=== PATIENT | male | born 1990 | race Caucasian/White ===

== ENCOUNTER 2020-12-28 12:46 | Inpatient (IN) | payer OTHER ==
[2020-12-28 13:37] VITALS: BMI 22.0
[2020-12-28] MEDS ORDERED: BISMUTH SUBSALICYLATE 262 MG/15 ML BTL PO PRN (15:17)
[2020-12-28] MEDS ORDERED: MAGNESIUM CITRATE 300 ML BOTTLE PO PRN (15:17)
[2020-12-28] MEDS ORDERED: ACETAMINOPHEN 325 MG TABLET (FP) PO PRN ×2 (15:17)
[2020-12-28] MEDS ORDERED: METHOCARBAMOL 500 MG TABLET PO PRN (15:17)
[2020-12-28] MEDS ORDERED: IBUPROFEN 400 MG TABLET (FP) PO PRN (15:17)
[2020-12-28] MEDS ORDERED: LORazepam 1 MG TABLET PO PRN (15:17)
[2020-12-28] MEDS ORDERED: MAG HYDROX/AL HYDROX/SIMETH 30 ML UNIT-DOSE CUP PO PRN (15:17)
[2020-12-28] MEDS ORDERED: MENTHOL/PHENOL 1 EACH UD MM PRN (15:17)
[2020-12-28] MEDS ORDERED: ONDANSETRON *ODT* 4 MG TABLET SL PRN (15:17)
[2020-12-28] MEDS ORDERED: MAGNESIUM HYDROX 2400MG/30ML ORAL SUSPENSION 30 ML CUP PO PRN (15:17)
[2020-12-28] MEDS: hydrOXYzine PAMOATE 25 MG CAPSULE (FP) PO SCH ×2 (17:16→22:44)
[2020-12-28] MEDS: LORazepam 2 MG TABLET PO SCH ×2 (17:16→22:44)
[2020-12-28] MEDS: NICOTINE POLACRILEX 2 MG GUM BUC PRN (18:13)
[2020-12-28] MEDS ORDERED: THIAMINE HCL 100 MG TABLET (FP) PO SCH (22:00)
[2020-12-28] MEDS ORDERED: MELATONIN 5 MG TABLETS PO SCH (22:00)
[2020-12-29] MEDS: LORazepam 2 MG TABLET PO SCH ×2 (06:47→10:48)
[2020-12-29] MEDS: hydrOXYzine PAMOATE 25 MG CAPSULE (FP) PO SCH ×3 (06:47→13:12)
[2020-12-29] MEDS ORDERED: PRENATAL VITAMINS W/ FOLIC ACID TABLET (FP) PO SCH (10:00)
[2020-12-29 10:05] LABS: HEMATOCRIT 41.9 % (35.4-49); HEMOGLOBIN 14.1 GM/dL (11.7-16.9); MCH 29.9 pg (25.7-33.7); MCHC 33.6 g/dl (32.0-35.9); MEAN PLT VOLUME 6.9 fl (7.5-11.1); PLATELET COUNT 329 10^3/uL (134-434); RBC 4.71 M/mm3 (4.00-5.60); RDW 13.7 % (11.9-15.9); WHITE BLOOD COUNT 5.3 K/mm3 (4.0-10.0)
[2020-12-29 10:15] LABS: ALBUMIN 3.4 g/dl (3.4-5.0); BLOOD UREA NITROGEN 9.7 mg/dL (7-18); CALCIUM 8.6 mg/dL (8.5-10.1)
[2020-12-29 10:19] LABS: CREATININE 0.7 mg/dL (0.55-1.3)
[2020-12-29 10:20] LABS: BILIRUBIN,TOTAL 0.5 mg/dL (0.2-1); TOT PROT 6.7 g/dl (6.4-8.2)
[2020-12-29] MEDS: NICOTINE POLACRILEX 2 MG GUM BUC PRN (10:51)
[2020-12-29 11:10] LABS: HIV INTERPRETATION NEGATIVE (NEGATIVE)
[2020-12-29 14:13] VITALS: BP 111/87; PULSE 104; TEMP 97.1
[2020-12-30] MEDS ORDERED: LORazepam 1 MG TABLET PO SCH (05:00)
[2020-12-31] MEDS ORDERED: LORazepam 0.5 MG TABLET PO PRN
[2020-12-31] MEDS ORDERED: LORazepam 0.5 MG TABLET PO SCH (05:00)
[2021-01-01] MEDS ORDERED: LORazepam 0.5 MG TABLET PO ONE (05:00)
== END 2020-12-29 15:35 | disposition left against medical advice (07) | DRG 770 ==
LOC: YASAS 12:46 → Y3N 15:04
PROVIDERS: ADMIT Allergy & Immunology; ATTEND Allergy & Immunology
PROC: HZ2ZZZZ Detoxification Services for Substance Abuse Treatment (ICD-10-PCS; principal; 2020-12-28)
DX: F11.23 Opioid dependence with withdrawal (principal); F19.10 Other psychoactive substance abuse, uncomplicated; F10.10 Alcohol abuse, uncomplicated; F17.210 Nicotine dependence, cigarettes, uncomplicated; Z86.69 Personal history of other diseases of the nervous system and sense organs; Z59.0 Homelessness
CPT/HCPCS: 36415; 80053; 85027; 86780; 87389; 93005; 93010; C9803; U0003; U0005

== ENCOUNTER 2021-01-12 12:25 | Inpatient (IN) | payer OTHER ==
[2021-01-12] MEDS ORDERED: ONDANSETRON *ODT* 4 MG TABLET SL PRN (17:37)
[2021-01-12] MEDS ORDERED: MAG HYDROX/AL HYDROX/SIMETH 30 ML UNIT-DOSE CUP PO PRN (17:37)
[2021-01-12] MEDS ORDERED: MAGNESIUM HYDROX 2400MG/30ML ORAL SUSPENSION 30 ML CUP PO PRN (17:37)
[2021-01-12] MEDS ORDERED: BISMUTH SUBSALICYLATE 524 MG/30 ML PO PRN (17:37)
[2021-01-12] MEDS ORDERED: IBUPROFEN 400 MG TABLET (FP) PO PRN (17:37)
[2021-01-12] MEDS ORDERED: MENTHOL/PHENOL 1 EACH UD MM PRN (17:37)
[2021-01-12] MEDS ORDERED: MAGNESIUM CITRATE 300 ML BOTTLE PO PRN (17:37)
[2021-01-12] MEDS ORDERED: NICOTINE POLACRILEX 2 MG GUM BUC PRN (17:37)
[2021-01-12] MEDS ORDERED: ACETAMINOPHEN 325 MG TABLET (FP) PO PRN ×2 (17:37)
[2021-01-12] MEDS ORDERED: METHOCARBAMOL 500 MG TABLET PO PRN (17:37)
[2021-01-12 17:51] VITALS: BMI 22.0
[2021-01-12] MEDS: hydrOXYzine PAMOATE 25 MG CAPSULE (FP) PO PRN (19:12)
[2021-01-12] MEDS ORDERED: LORazepam 1 MG TABLET PO ONE (19:23)
[2021-01-12] MEDS: THIAMINE HCL 100 MG TABLET (FP) PO SCH (22:22)
[2021-01-12] MEDS: MELATONIN 5 MG TABLETS PO SCH (22:22)
[2021-01-12] MEDS: QUEtiapine FUMARATE 100 MG TABLET (FP) PO SCH (22:22)
[2021-01-12] MEDS: GABAPENTIN 300 MG CAPSULE PO SCH (22:23)
[2021-01-13] MEDS: GABAPENTIN 300 MG CAPSULE PO SCH ×3 (06:10→22:25)
[2021-01-13] MEDS: hydrOXYzine PAMOATE 25 MG CAPSULE (FP) PO PRN (06:12)
[2021-01-13] MEDS ORDERED: ARIPiprazole 15 MG TABLET PO SCH (10:00)
[2021-01-13] MEDS: NICOTINE 21 MG/24 HOURS TOPICAL PATCH TD SCH (10:22)
[2021-01-13] MEDS: PRENATAL VITAMINS W/ FOLIC ACID TABLET (FP) PO SCH (10:22)
[2021-01-13] MEDS ORDERED: diazePAM 5 MG TABLET PO PRN ×2 (11:31→11:43)
[2021-01-13] MEDS: diazePAM 5 MG TABLET PO SCH ×3 (11:44→23:35)
[2021-01-13 11:49] LABS: HEMATOCRIT 46.5 % (35.4-49); HEMOGLOBIN 15.5 GM/dL (11.7-16.9); MCH 30.2 pg (25.7-33.7); MCHC 33.3 g/dl (32.0-35.9); MEAN CELL VOLUME 90.6 fl (80-96); MEAN PLT VOLUME 6.7 fl (7.5-11.1); PLATELET COUNT 345 10^3/uL (134-434); RBC 5.13 M/mm3 (4.00-5.60); RDW 14.1 % (11.9-15.9); WHITE BLOOD COUNT 8.1 K/mm3 (4.0-10.0)
[2021-01-13 12:03] LABS: ALBUMIN 3.5 g/dl (3.4-5.0); BLOOD UREA NITROGEN 15.9 mg/dL (7-18); CALCIUM 8.6 mg/dL (8.5-10.1)
[2021-01-13 12:07] LABS: CREATININE 0.9 mg/dL (0.55-1.3)
[2021-01-13 12:08] LABS: BILIRUBIN,TOTAL 0.5 mg/dL (0.2-1); TOT PROT 7.2 g/dl (6.4-8.2)
[2021-01-13] MEDS: THIAMINE HCL 100 MG TABLET (FP) PO SCH (22:25)
[2021-01-13] MEDS: QUEtiapine FUMARATE 100 MG TABLET (FP) PO SCH (22:25)
[2021-01-13] MEDS: MELATONIN 5 MG TABLETS PO SCH (22:27)
[2021-01-14] MEDS: diazePAM 5 MG TABLET PO SCH ×3 (06:09→22:16)
[2021-01-14] MEDS: GABAPENTIN 300 MG CAPSULE PO SCH ×3 (06:10→22:16)
[2021-01-14] MEDS: hydrOXYzine PAMOATE 25 MG CAPSULE (FP) PO PRN (10:30)
[2021-01-14] MEDS: PRENATAL VITAMINS W/ FOLIC ACID TABLET (FP) PO SCH (10:30)
[2021-01-14] MEDS: NICOTINE 21 MG/24 HOURS TOPICAL PATCH TD SCH (10:31)
[2021-01-14] MEDS: QUEtiapine FUMARATE 100 MG TABLET (FP) PO SCH (22:16)
[2021-01-14] MEDS: THIAMINE HCL 100 MG TABLET (FP) PO SCH (22:16)
[2021-01-14] MEDS: MELATONIN 5 MG TABLETS PO SCH (22:49)
[2021-01-14 23:12] LABS: HIV INTERPRETATION NEGATIVE (NEGATIVE)
[2021-01-15] MEDS: diazePAM 5 MG TABLET PO SCH ×2 (05:51→17:36)
[2021-01-15] MEDS: GABAPENTIN 300 MG CAPSULE PO SCH ×3 (05:51→22:22)
[2021-01-15] MEDS: NICOTINE 21 MG/24 HOURS TOPICAL PATCH TD SCH (10:23)
[2021-01-15] MEDS: PRENATAL VITAMINS W/ FOLIC ACID TABLET (FP) PO SCH (10:23)
[2021-01-15] MEDS: QUEtiapine FUMARATE 100 MG TABLET (FP) PO SCH (22:22)
[2021-01-15] MEDS: THIAMINE HCL 100 MG TABLET (FP) PO SCH (22:22)
[2021-01-15] MEDS: MELATONIN 5 MG TABLETS PO SCH (22:22)
[2021-01-15 23:02] VITALS: TEMP 98.1
[2021-01-16] MEDS: GABAPENTIN 300 MG CAPSULE PO SCH (05:56)
[2021-01-16] MEDS ORDERED: diazePAM 5 MG TABLET PO ONE (06:00)
[2021-01-16 09:01] VITALS: BP 129/65; PULSE 110
[2021-01-16] MEDS: PRENATAL VITAMINS W/ FOLIC ACID TABLET (FP) PO SCH (09:37)
== END 2021-01-16 09:36 | disposition other institution (70) | DRG 776 ==
LOC: YASAS 12:25 → Y6N 17:40
PROVIDERS: ADMIT Allergy & Immunology; ATTEND Allergy & Immunology
PROC: HZ2ZZZZ Detoxification Services for Substance Abuse Treatment (ICD-10-PCS; principal; 2021-01-12)
DX: F13.230 Sedative, hypnotic or anxiolytic dependence with withdrawal, uncomplicated (principal); F15.20 Other stimulant dependence, uncomplicated; F17.210 Nicotine dependence, cigarettes, uncomplicated; F25.9 Schizoaffective disorder, unspecified; F19.282 Other psychoactive substance dependence with psychoactive substance-induced sleep disorder; F19.24 Other psychoactive substance dependence with psychoactive substance-induced mood disorder; F34.0 Cyclothymic disorder; F43.10 Post-traumatic stress disorder, unspecified; G40.89 Other seizures; Z86.19 Personal history of other infectious and parasitic diseases; Z91.410 Personal history of adult physical and sexual abuse; Z88.0 Allergy status to penicillin; Z59.0 Homelessness; Z56.0 Unemployment, unspecified
CPT/HCPCS: 36415; 80053; 85027; 86593; 86780; 87389; C9803; U0003; U0005

== ENCOUNTER 2022-09-04 11:10 | Inpatient (IN) | payer OTHER ==
[2022-09-04 11:46] VITALS: BMI 22.1
[2022-09-04] MEDS ORDERED: DICYCLOMINE HCL 10 MG CAPSULE PO PRN (12:50)
[2022-09-04] MEDS ORDERED: LOPERAMIDE HCL 2 MG CAPSULE PO PRN (12:50)
[2022-09-04] MEDS ORDERED: ACETAMINOPHEN 325 MG TABLET (FP) PO PRN ×2 (12:50)
[2022-09-04] MEDS ORDERED: NICOTINE POLACRILEX 2 MG GUM BUC PRN (12:50)
[2022-09-04] MEDS ORDERED: NALOXONE HCL (KLOXXADO) 8 MG SPRAY NS PRN (12:50)
[2022-09-04] MEDS ORDERED: IBUPROFEN 600 MG TABLET (FP) PO PRN (12:50)
[2022-09-04] MEDS ORDERED: POLYETHYLENE GLYCOL (HEALTHYLAX) 3350 17 GM PACKET PO PRN (12:50)
[2022-09-04] MEDS ORDERED: BISMUTH SUBSALICYLATE 524 MG/30 ML PO PRN (12:50)
[2022-09-04] MEDS ORDERED: MAG HYDROX/AL HYDROX/SIMETH 30 ML UNIT-DOSE CUP PO PRN (12:50)
[2022-09-04] MEDS ORDERED: ONDANSETRON *ODT* 4 MG TABLET SL PRN (12:50)
[2022-09-04] MEDS ORDERED: MAGNESIUM HYDROX 2400MG/30ML ORAL SUSPENSION 30 ML CUP PO PRN (12:50)
[2022-09-04] MEDS ORDERED: BENZOCAINE/MENTHOL (CHLORASEPTIC ) LOZENGE MM PRN (12:50)
[2022-09-04] MEDS ORDERED: chlordiazePOXIDE HCL 25 MG CAPSULE PO ONE (14:05)
[2022-09-04] MEDS ORDERED: chlordiazePOXIDE HCL 25 MG CAPSULE PO PRN (14:05)
[2022-09-04] MEDS ORDERED: chlordiazePOXIDE HCL 25 MG CAPSULE ONE (14:17)
[2022-09-04] MEDS: NICOTINE 14 MG/24 HOURS TOPICAL PATCH TD SCH (15:52)
[2022-09-04] MEDS: chlordiazePOXIDE HCL 25 MG CAPSULE PO SCH ×2 (17:20→22:09)
[2022-09-04] MEDS: METHOCARBAMOL 500 MG TABLET PO PRN (17:21)
[2022-09-04] MEDS: THIAMINE HCL 100 MG TABLET (FP) PO SCH (22:10)
[2022-09-04] MEDS: MELATONIN 5 MG TABLETS PO SCH (22:10)
[2022-09-05] MEDS: chlordiazePOXIDE HCL 25 MG CAPSULE PO SCH ×4 (05:19→22:06)
[2022-09-05] MEDS: METHOCARBAMOL 500 MG TABLET PO PRN ×3 (05:20→20:18)
[2022-09-05] MEDS: PRENATAL VITAMINS W/ FOLIC ACID TABLET (FP) PO SCH (10:20)
[2022-09-05] MEDS: NICOTINE 14 MG/24 HOURS TOPICAL PATCH TD SCH (10:21)
[2022-09-05 11:03] LABS: ALBUMIN 2.7 g/dl (3.4-5.0); CALCIUM 8.5 mg/dL (8.5-10.1)
[2022-09-05 11:04] LABS: BLOOD UREA NITROGEN 9.5 mg/dL (7-18)
[2022-09-05 11:06] LABS: CREATININE 0.7 mg/dL (0.55-1.3)
[2022-09-05 11:07] LABS: TOT PROT 5.7 g/dl (6.4-8.2)
[2022-09-05 11:08] LABS: BILIRUBIN,TOTAL 0.3 mg/dL (0.2-1)
[2022-09-05 11:10] LABS: HEMATOCRIT 40.4 % (35.4-49); HEMOGLOBIN 13.7 GM/dL (11.7-16.9); MCHC 33.8 g/dl (32.0-35.9); MEAN CELL VOLUME 91.6 fl (80-96); MEAN PLT VOLUME 6.9 fl (7.5-11.1); PLATELET COUNT 281 10^3/uL (134-434); RBC 4.41 M/mm3 (4.00-5.60); RDW 13.3 % (11.9-15.9); WHITE BLOOD COUNT 6.2 K/mm3 (4.0-10.0)
[2022-09-05] MEDS: NICOTINE 10 MG CARTRIDGE (INHALER) IH PRN (17:13)
[2022-09-05] MEDS: THIAMINE HCL 100 MG TABLET (FP) PO SCH (22:07)
[2022-09-05] MEDS: GABAPENTIN 300 MG CAPSULE PO SCH (22:07)
[2022-09-05] MEDS: MELATONIN 5 MG TABLETS PO SCH (22:07)
[2022-09-06] MEDS: GABAPENTIN 300 MG CAPSULE PO SCH ×3 (05:31→21:59)
[2022-09-06] MEDS: chlordiazePOXIDE HCL 25 MG CAPSULE PO SCH ×4 (05:31→22:01)
[2022-09-06] MEDS: METHOCARBAMOL 500 MG TABLET PO PRN ×3 (05:32→21:59)
[2022-09-06] MEDS: PRENATAL VITAMINS W/ FOLIC ACID TABLET (FP) PO SCH (10:35)
[2022-09-06] MEDS: LITHIUM CARBONATE 150 MG CAPSULE PO SCH (10:36)
[2022-09-06] MEDS: NICOTINE 14 MG/24 HOURS TOPICAL PATCH TD SCH (10:39)
[2022-09-06] MEDS: IBUPROFEN 400 MG TABLET (FP) PO PRN (14:58)
[2022-09-06] MEDS: NICOTINE 10 MG CARTRIDGE (INHALER) IH PRN (17:53)
[2022-09-06] MEDS: THIAMINE HCL 100 MG TABLET (FP) PO SCH (21:59)
[2022-09-06] MEDS: MELATONIN 5 MG TABLETS PO SCH (21:59)
[2022-09-07] MEDS ORDERED: chlordiazePOXIDE HCL 10 MG CAPSULE PO PRN
[2022-09-07] MEDS: GABAPENTIN 300 MG CAPSULE PO SCH ×3 (05:08→22:29)
[2022-09-07] MEDS: chlordiazePOXIDE HCL 10 MG CAPSULE PO SCH ×4 (05:09→22:30)
[2022-09-07] MEDS: METHOCARBAMOL 500 MG TABLET PO PRN ×3 (05:12→22:29)
[2022-09-07] MEDS: PRENATAL VITAMINS W/ FOLIC ACID TABLET (FP) PO SCH (10:11)
[2022-09-07] MEDS: LITHIUM CARBONATE 150 MG CAPSULE PO SCH (10:11)
[2022-09-07] MEDS: IBUPROFEN 400 MG TABLET (FP) PO PRN ×2 (10:13→22:30)
[2022-09-07] MEDS: hydrOXYzine PAMOATE 25 MG CAPSULE (FP) PO PRN ×2 (10:13→22:29)
[2022-09-07] MEDS: NICOTINE 14 MG/24 HOURS TOPICAL PATCH TD SCH (10:15)
[2022-09-07] MEDS: NICOTINE 10 MG CARTRIDGE (INHALER) IH PRN (18:13)
[2022-09-07] MEDS: MELATONIN 5 MG TABLETS PO SCH (22:29)
[2022-09-07] MEDS: THIAMINE HCL 100 MG TABLET (FP) PO SCH (22:29)
[2022-09-08] MEDS ORDERED: chlordiazePOXIDE HCL 10 MG CAPSULE PO SCH (05:00)
[2022-09-08] MEDS: GABAPENTIN 300 MG CAPSULE PO SCH (05:20)
[2022-09-08] MEDS: IBUPROFEN 400 MG TABLET (FP) PO PRN (05:23)
[2022-09-08] MEDS: METHOCARBAMOL 500 MG TABLET PO PRN (05:23)
[2022-09-08 06:16] VITALS: RESP 16
[2022-09-08 09:01] VITALS: BP 123/72; PULSE 90; TEMP 97.7
[2022-09-09] MEDS ORDERED: chlordiazePOXIDE HCL 10 MG CAPSULE PO ONE (05:00)
== END 2022-09-08 09:31 | disposition home or self-care (01) | DRG 775 ==
LOC: YASAS 11:10 → UNDOADMIN 13:30 → Y3N 13:30
PROVIDERS: ADMIT Allergy & Immunology; ATTEND Surgery
PROC: HZ2ZZZZ Detoxification Services for Substance Abuse Treatment (ICD-10-PCS; principal; 2022-09-04)
DX: F10.230 Alcohol dependence with withdrawal, uncomplicated (principal); F13.20 Sedative, hypnotic or anxiolytic dependence, uncomplicated; F15.20 Other stimulant dependence, uncomplicated; F17.210 Nicotine dependence, cigarettes, uncomplicated; F19.24 Other psychoactive substance dependence with psychoactive substance-induced mood disorder; E46 Unspecified protein-calorie malnutrition; R76.8 Other specified abnormal immunological findings in serum; R73.9 Hyperglycemia, unspecified; Z88.0 Allergy status to penicillin
CPT/HCPCS: 36415; 80053; 80178; 82947; 83036; 85027; 86593; 86780; 87811; 93005; 93010; C9803-CS; U0003; U0005